=== PATIENT | female | born 1995 | race Caucasian/White ===

== ENCOUNTER 2016-06-17 10:49 | Emergency (ER) | payer OTHER ==
[~2016-06-17] VITALS: Ht 165.1 cm; Wt 72.6 kg
[2016-06-17 15:58] VITALS: BP 144/80
[2016-06-17 16:10] LABS: BASO % 0.3 % (0.0-1.0); EOS # 0.2 K/mm3 (0.0-0.50); EOS % 3.2 % (0.0-3.0); LARGE UNSTAINED CELL # 0.1 K/mm3 (0.0-0.4); LARGE UNSTAINED CELL % 1.2 % (0.0-4.0); LYMPH # 1.6 K/mm3 (1.5-6.5); MEAN CORPUSCULAR HEMOGLOBIN 30.5 pg (27.0-33.0); MEAN CORPUSCULAR HGB CONC 34.6 g/dl (32.0-36.5); MEAN CORPUSCULAR VOLUME 88.1 fl (80.0-96.0); MONO # 0.2 K/mm3 (0.0-0.8); MONO % 5.1 % (0.0-5.0); NEUTROPHILS # 2.6 K/mm3 (1.8-7.7); NEUTROPHILS % 56.1 % (36.0-66.0); PLATELET COUNT, AUTOMATED 294 k/mm3 (150-450); RED CELL DISTRIBUTION WIDTH 12.5 % (11.5-14.5); WHITE BLOOD COUNT 4.6 K/mm3 (4.0-10.0)
--- NOTE | 2016-06-17 16:32 | REP ---
RIGHT KNEE: HISTORY: Pain and swelling. PRIORS: None. There has been previous open reduction and internal fixation of the distal femur where an old healed fracture is noted. A small incidental exostosis is seen arising from the distal femoral diaphysis posteriorly. There is no evidence of an acute fracture or destructive osseous lesion. The compartments are symmetric and well maintained. Signed by Israel Craven DO 06/17/2016 04:39 P
[2016-06-17 16:35] LABS: URIC ACID 3.6 MG/DL (2.6-6.0)
[2016-06-17 16:37] LABS: ERYTHROCYTE SEDIMENTATION RATE 7 mm/hr (0-20)
[2016-06-17] MEDS ORDERED: NORCOTAB PO (16:48)
== END 2016-06-17 17:05 | disposition home or self-care (01) ==
LOC: M ED 15:59
DX: M25.461 Effusion, right knee (principal)